=== PATIENT | female | born 1945 | race Caucasian/White ===

== ENCOUNTER 2024-11-25 11:09 | Day surgery (SDC) | payer OTHER, MEDICARE ==
[2024-11-19 13:38] VITALS: BMI 37.5
[2024-11-25 11:47] VITALS: RESP 18
[2024-11-25 14:22] VITALS: BP 133/51; PULSE 55; TEMP 97.2
== END 2024-11-25 14:05 | disposition home or self-care (01) ==
LOC: FASU-ENDO 11:09
PROVIDERS: ATTEND Internal Medicine Gastroenterology
PROC: 0DBK8ZX Excision of Ascending Colon, Via Natural or Artificial Opening Endoscopic, Diagnostic (ICD-10-PCS; 2024-11-25)
PROC: 0DB68ZX Excision of Stomach, Via Natural or Artificial Opening Endoscopic, Diagnostic (ICD-10-PCS; principal; 2024-11-25 13:10)
DX: D50.9 Iron deficiency anemia, unspecified (principal); K29.50 Unspecified chronic gastritis without bleeding; D17.5 Benign lipomatous neoplasm of intra-abdominal organs; K57.30 Diverticulosis of large intestine without perforation or abscess without bleeding
CPT/HCPCS: 88305-TC; 88342-TC